=== PATIENT | female | born 1940 | race Caucasian/White ===

== ENCOUNTER 2017-11-10 20:39 | Emergency (ER) | payer OTHER ==
[~2017-11-10] VITALS: Ht 162.6 cm; Wt 76.2 kg
[~2017-11-10 20:39] MED LIST: ASPI-618 PO; ATOR40TA PO; LOSA50TA3 PO; PANT40TA2 PO
[2017-11-10] MEDS ORDERED: IV NORMAL SALINE 1000 ML BAG IV ONE (22:15)
[2017-11-10 22:21] LABS: *BILIRUBIN,URIN NEGATIVE (NEGATIVE); *BLOOD, URINE 1+ (NEGATIVE); *CLARITY,URINE CLEAR (CLEAR); *COLOR,URINE YELLOW (YELLOW); *KETONES,URINE NEGATIVE (NEGATIVE); *PROTEIN,URINE NEGATIVE (NEGATIVE); *UROBILINOGEN,URINE 0.2 E.U./dl (NORMAL); LEUKOCYTE ESTERASE ,URINE TRACE (NEGATIVE); NITRITE, URINE NEGATIVE (NEGATIVE); UGLUCOSE NEGATIVE (NEGATIVE)
[2017-11-10 22:22] LABS: BASOPHILS % (AUTO) 0.7 % (0.0-2.0); EOSINOPHILS # (AUTO) 0.2 K/uL (0.0-0.7); HEMATOCRIT 38.7 % (31.2-41.9); HEMOGLOBIN 13.3 g/dL (10.9-14.3); LYMPHOCYTES # (AUTO) 1.4 K/uL (20.0-40.0); LYMPHOCYTES % (AUTO) 27.9 % (20.5-51.5); MEAN CORPUSCULAR HGB CONC 35 g/dL (32.3-35.6); MEAN CORPUSCULAR VOLUME 90.1 fL (75.5-95.3); MONOCYTES # (AUTO) 0.5 K/uL (2.0-10.0); MONOCYTES % (AUTO) 8.7 % (0.0-11.0); NEUTROPHILS # (AUTO) 3.1 K/uL (1.8-8.9); NEUTROPHILS % (AUTO) 59.7 % (38.5-71.5); PLATELET COUNT (AUTO) 205 K/uL (179-408); WHITE BLOOD COUNT (AUTO) 5.2 K/uL (3.8-11.8)
[2017-11-10 22:29] LABS: CARBON DIOXIDE 28 mmol/L (21-32); CHLORIDE 105 mmol/L (98-107); CREATININE 0.8 mg/dL (0.6-1.3); GLUCOSE 99 mg/dL (74-106); POTASSIUM 3.7 mmol/L (3.5-5.1); UREA NITROGEN, BLOOD 17 mg/dL (7-18)
[2017-11-10 22:34] LABS: MUCUS,URINE FEW /LPF (0-FEW); SQUAMOUS EPITHELIAL CELL,UR FEW /HPF (NONE SEEN); WBC,URINE 0-3 /HPF (0-3)
[2017-11-10 22:35] LABS: ALANINE AMINOTRANSFERASE 21 U/L (14-59); ALKALINE PHOSPHATASE 89 U/L (50-136); ASPARTATE AMINOTRANSFERASE 20 U/L (15-37); BILIRUBIN,DIRECT 0.1 mg/dL (0.0-0.2); BILIRUBIN,TOTAL 0.2 mg/dL (0.2-1.0); LIPASE 107 U/L (73-393); TOTAL PROTEIN, SERUM 7.5 g/dL (6.4-8.2)
[2017-11-10 23:31] VITALS: BP 118/72
--- NOTE | 2017-11-10 23:31 | NUR ---
Patient discharged to home in stable conditon. Written and verbal after care instructions given. Patient verbalizes understanding of instructions.
== END 2017-11-10 23:32 | disposition home or self-care (01) ==
LOC: ER 20:39
DX: R10.31 Right lower quadrant pain (principal); I10 Essential (primary) hypertension; K21.9 Gastro-esophageal reflux disease without esophagitis; Z79.82 Long term (current) use of aspirin; Z90.710 Acquired absence of both cervix and uterus
CPT/HCPCS: 36415; 71045; 83690; 85025; 87086; 93005; A4663; J7030

== ENCOUNTER 2021-01-03 18:45 | Inpatient (IN) | payer MEDICARE, OTHER ==
[~2021-01-03] VITALS: Ht 165.1 cm; Wt 65.8 kg
--- NOTE | 2021-01-03 19:10 | NUR ---
Dr. Duggan at bedside for MSE.
[2021-01-03] MEDS ORDERED: HYDROMORPHONE 1 MG/1 ML DISP.SYRIN IV ONE ×2 (19:15→22:30)
[2021-01-03] MEDS ORDERED: IV NORMAL SALINE 1000 ML BAG IV ONE (19:15)
[2021-01-03] MEDS ORDERED: ONDANSETRON 4 MG/2 ML VIAL IV ONE (19:15)
[2021-01-03] MEDS ORDERED: KETOROLAC TROMETHAMINE 15 MG INJ IVP ONE (19:15)
--- NOTE | 2021-01-03 19:25 | NUR ---
Pt provided urine sample, sent to lab.
[2021-01-03] MEDS ORDERED: HYDROMORPHONE 1 MG/1 ML DISP.SYRIN ONE ×2 (19:31→22:39)
[2021-01-03] MEDS ORDERED: ONDANSETRON 4 MG/2 ML VIAL ONE (19:31)
[2021-01-03] MEDS ORDERED: KETOROLAC TROMETHAMINE 15 MG INJ ONE (19:32)
[2021-01-03 19:45] LABS: *BILIRUBIN,URIN NEGATIVE (NEGATIVE); *BLOOD, URINE 1+ (NEGATIVE); *CLARITY,URINE CLEAR (CLEAR); *COLOR,URINE YELLOW (YELLOW); *KETONES,URINE NEGATIVE (NEGATIVE); *UROBILINOGEN,URINE 0.2 E.U./dl (NORMAL); LEUKOCYTE ESTERASE ,URINE 1+ (NEGATIVE); NITRITE, URINE NEGATIVE (NEGATIVE); PH,URINE 5.5 (5.0-8.0); UGLUCOSE NEGATIVE (NEGATIVE)
[2021-01-03 19:46] LABS: BASOPHILS % (AUTO) 0.7 % (0.0-2.0); EOSINOPHILS # (AUTO) 0.1 K/uL (0.0-0.7); EOSINOPHILS % (AUTO) 1.7 % (0.0-7.0); HEMATOCRIT 40.5 % (31.2-41.9); HEMOGLOBIN 13.6 g/dL (10.9-14.3); LYMPHOCYTES # (AUTO) 0.7 K/uL (20.0-40.0); LYMPHOCYTES % (AUTO) 18.3 % (20.5-51.5); MEAN CORPUSCULAR HEMOGLOBIN 31.1 uug (24.7-32.8); MEAN CORPUSCULAR HGB CONC 34 g/dL (32.3-35.6); MEAN CORPUSCULAR VOLUME 92.3 fL (75.5-95.3); MONOCYTES # (AUTO) 0.4 K/uL (2.0-10.0); MONOCYTES % (AUTO) 11.4 % (0.0-11.0); NEUTROPHILS # (AUTO) 2.7 K/uL (1.8-8.9); NEUTROPHILS % (AUTO) 67.9 % (38.5-71.5); PLATELET COUNT (AUTO) 222 K/uL (179-408); RED BLOOD CELL COUNT(AUTO) 4.39 MIL/uL (3.63-4.92); WHITE BLOOD COUNT (AUTO) 3.9 K/uL (3.8-11.8)
[2021-01-03 19:52] LABS: BILIRUBIN,DIRECT 0.1 mg/dL (0.0-0.2); BILIRUBIN,TOTAL 0.3 mg/dL (0.2-1.0); CREATININE 0.9 mg/dL (0.6-1.3); POTASSIUM 3.7 mmol/L (3.5-5.1); TOTAL PROTEIN, SERUM 7.5 g/dL (6.4-8.2)
[2021-01-03 20:01] LABS: WBC,URINE 0-3 /HPF (0-3)
--- NOTE | 2021-01-03 20:07 | NUR ---
Pt out of ER for CT.
[2021-01-03] MEDS ORDERED: SWABABLE VALVE TRANSFER SET EA MC ONE (20:08)
[2021-01-03] MEDS ORDERED: IOHEXOL 300MG/ML 100 ML INFUS..BTL ONE (20:09)
[2021-01-03] MEDS ORDERED: IV NORMAL SALINE 250 ML IV ONE (20:09)
--- NOTE | 2021-01-03 20:38 | NUR ---
Pt back to ER from CT.
--- NOTE | 2021-01-03 20:45 | NUR ---
Xray at bedside.
[2021-01-03] MEDS ORDERED: CLOPIDOGREL 75 MG TABLET PO ONE (21:15)
[2021-01-03] MEDS ORDERED: ENOXAPARIN SODIUM 60 MG/0.6 ML DISP.SYRIN SQ ONE (21:15)
[2021-01-03] MEDS ORDERED: ASPIRIN 325 MG TABLET PO ONE (21:15)
[2021-01-03] MEDS ORDERED: LIDOCAINE 2% (UROJET) 10 ML JELLY MM ONE ×2 (21:15→21:26)
--- NOTE | 2021-01-03 21:17 | NUR ---
Called [facility] to page Anne Henderson NP.
[2021-01-03] MEDS ORDERED: ASPIRIN 325 MG TABLET ONE (21:24)
[2021-01-03] MEDS ORDERED: CLOPIDOGREL 75 MG TABLET ONE (21:25)
[2021-01-03] MEDS ORDERED: ENOXAPARIN SODIUM 100 MG/ML DISP.SYRIN SQ ONE (21:26)
[2021-01-03] MEDS ORDERED: FUROSEMIDE 40 MG/4 ML VIAL IV ONE (21:30)
[2021-01-03] MEDS ORDERED: NITROGLYCERIN 0.4 MG/TAB BOTTLE SL PRN (21:30)
[2021-01-03] MEDS ORDERED: BISACODYL 10 MG SUPP.RECT RC ONE (21:30)
[2021-01-03] MEDS ORDERED: FUROSEMIDE 40 MG/4 ML VIAL ONE (21:33)
--- NOTE | 2021-01-03 21:47 | NUR ---
Inserted NG tube 16 fr to right nare, confirmed placement with Ethan Walton RN via auscultation, called Xray for NG tube placement confirmation.
[2021-01-03] MEDS ORDERED: CEphaleXIN 250 MG CAPSULE ONE (21:49)
--- NOTE | 2021-01-03 21:49 | NUR ---
Xray at bedside.
--- NOTE | 2021-01-03 22:02 | NUR ---
NG tube placement confirmed thru X-ray.
--- NOTE | 2021-01-03 22:42 | NUR ---
Report given to [employer] Sales Professional Apartment Manager.
[2021-01-03 23:23] VITALS: BP_SYST 151; BP_DIAS 74; BP_DIAS 75
[2021-01-03] MEDS: DOCUSATE SODIUM 100 MG CAPSULE PO SCH (23:51)
[2021-01-04 00:17] VITALS: BP 145/68
[2021-01-04] MEDS: MORPHINE SULFATE 2 MG/1 ML DISP.SYRIN IV PRN ×2 (01:05→07:51)
[2021-01-04] MEDS: ACETAMINOPHEN 650 MG SUPP.RECT RC PRN ×2 (03:58→07:51)
[2021-01-04 04:43] VITALS: BP 122/68
--- NOTE | 2021-01-04 06:41 | NUR ---
PT ARRIVED ON UNIT AROUND 2300. AxO4. PT AMBULATORY AND USES COMODE. PT ON ROOM AIR W/ NO APPARENT SOB OR DYSPNEA NOTED. PT IS [place] SPEAKING W/ LITTLE TO NO CROATIAN. PRN TYLENOL AND MORPHINE GIVEN FOR PAIN. TROPONIN .176 WHILE AT ER AND .175 ON LATEST LAB DRAW AT 0330. CALL LIGHT WITHIN REACH. ALL NEEDS MET.
--- NOTE | 2021-01-04 08:00 | NUR ---
Bowel sound hypoactive but present. Pt denies any flatus being passed. NGT at low cont suction @ marking 65. Pt speaks Indonesian but able to make her needs known. Had another nurse translate to notify nursing for any c/o abd pain, nausea, and headache. Pt agreeable with plan. Kept pt NPO. Pt is for SPFT for today. Tele SNR @ 75 hr. Call light is within reach.
[2021-01-04] MEDS: CEphaleXIN 500 MG CAPSULE PO SCH ×2 (08:14→16:30)
[2021-01-04] MEDS: ASPIRIN 81 MG TAB.CHEW PO SCH (08:16)
[2021-01-04] MEDS: LOSARTAN POTASSIUM 50 MG TABLET PO SCH (08:16)
[2021-01-04] MEDS ORDERED: FUROSEMIDE 40 MG/4 ML VIAL IV SCH (09:00)
[2021-01-04] MEDS ORDERED: ENOXAPARIN SODIUM 60 MG/0.6 ML DISP.SYRIN SQ SCH (09:00)
[2021-01-04 09:16] LABS: BASOPHILS # (AUTO) 0.1 K/uL (0.0-8.0); BASOPHILS % (AUTO) 1.8 % (0.0-2.0); EOSINOPHILS % (AUTO) 0.4 % (0.0-7.0); HEMOGLOBIN 13.5 g/dL (10.9-14.3); LYMPHOCYTES # (AUTO) 0.7 K/uL (20.0-40.0); LYMPHOCYTES % (AUTO) 15.9 % (20.5-51.5); MEAN CORPUSCULAR HGB CONC 34 g/dL (32.3-35.6); MEAN CORPUSCULAR VOLUME 92.1 fL (75.5-95.3); MONOCYTES # (AUTO) 0.4 K/uL (2.0-10.0); NEUTROPHILS # (AUTO) 3.4 K/uL (1.8-8.9); NEUTROPHILS % (AUTO) 73.9 % (38.5-71.5); PLATELET COUNT (AUTO) 215 K/uL (179-408); RED BLOOD CELL COUNT(AUTO) 4.35 MIL/uL (3.63-4.92); WHITE BLOOD COUNT (AUTO) 4.6 K/uL (3.8-11.8)
[2021-01-04] MEDS: ONDANSETRON 4 MG/2 ML VIAL IV PRN ×2 (09:21→16:30)
[2021-01-04] MEDS ORDERED: DIATR MEGLU/DIATRIZOATE SODIUM 30 ML BOTTLE ONE (09:21)
[2021-01-04 09:22] LABS: BILIRUBIN,TOTAL 0.3 mg/dL (0.2-1.0); CREATININE 0.9 mg/dL (0.6-1.3); PHOSPHOROUS 4.5 mg/dL (2.5-4.9); POTASSIUM 3.5 mmol/L (3.5-5.1); TOTAL PROTEIN, SERUM 7.5 g/dL (6.4-8.2)
[2021-01-04 09:31] LABS: THYROID STIMULATING HORMONE 2.522 mIU/mL (0.358-3.740)
[2021-01-04 12:00] VITALS: BP 119/70
[2021-01-04 16:00] VITALS: BP 138/72
[2021-01-04] MEDS ORDERED: METOCLOPRAMIDE HCL 10 MG/2 ML VIAL IV SCH (18:00)
[2021-01-04] MEDS: METOCLOPRAMIDE HCL 10 MG/2 ML VIAL IV SCH ×2 (18:05→23:34)
--- NOTE | 2021-01-04 18:28 | NUR ---
Pt's ABD pain managed with morphine, nausea given x2 with zofran. Pt had x 1 vomiting episode @ around 1100 upon given the contrast for SPFT. Pt had about 400 out from the ngt to suction with brownish color. Pt comfortable at the moment. Kept pt NPO still no result from SPFT. Pt is in no acute distress. Call light is within reach.
--- NOTE | 2021-01-04 19:30 | NUR ---
RECEIVED PT AWAKE, ALERT AND ORIENTEDX4. PT IN NO ACUTE DISTRESS. IV INTACT. PT ON NGTUBE. SAFETY AND COMFORT PROVIDED. WILL CONTINUE TO MONITOR
[2021-01-04] MEDS: ATORVASTATIN 40 MG TABLET PO SCH (20:00)
[2021-01-04] MEDS: DOCUSATE SODIUM 100 MG CAPSULE PO SCH (20:00)
[2021-01-04] MEDS: ACETAMINOPHEN 325 MG TABLET PO PRN (20:00)
[2021-01-04 20:09] VITALS: BP 145/73
[2021-01-04] MEDS ORDERED: ZOLPIDEM 5 MG TABLET PO PRN (21:45)
[2021-01-05 00:03] VITALS: BP 140/70
[2021-01-05 04:09] VITALS: BP 145/67
[2021-01-05] MEDS: METOCLOPRAMIDE HCL 10 MG/2 ML VIAL IV SCH ×3 (05:51→17:03)
[2021-01-05 06:16] LABS: BASOPHILS % (AUTO) 0.7 % (0.0-2.0); EOSINOPHILS % (AUTO) 0.7 % (0.0-7.0); HEMATOCRIT 40.7 % (31.2-41.9); HEMOGLOBIN 13.7 g/dL (10.9-14.3); LYMPHOCYTES # (AUTO) 1.1 K/uL (20.0-40.0); LYMPHOCYTES % (AUTO) 21.5 % (20.5-51.5); MEAN CORPUSCULAR HEMOGLOBIN 30.9 uug (24.7-32.8); MEAN CORPUSCULAR HGB CONC 34 g/dL (32.3-35.6); MEAN CORPUSCULAR VOLUME 91.5 fL (75.5-95.3); MONOCYTES # (AUTO) 0.7 K/uL (2.0-10.0); MONOCYTES % (AUTO) 13.3 % (0.0-11.0); NEUTROPHILS # (AUTO) 3.2 K/uL (1.8-8.9); NEUTROPHILS % (AUTO) 63.8 % (38.5-71.5); PLATELET COUNT (AUTO) 214 K/uL (179-408); RED BLOOD CELL COUNT(AUTO) 4.45 MIL/uL (3.63-4.92); WHITE BLOOD COUNT (AUTO) 4.9 K/uL (3.8-11.8)
--- NOTE | 2021-01-05 06:22 | NUR ---
PT IN NO ACUTE DISTRESS. PT NGTUBE OUTPUT WAS 250 ML. PT SLEPT INTERMITTENTLY. PT VITAL SIGNS STABLE. SAFETY AND COMFORT PROVIDED.ALL NEEDS ARE MET. PT IV INTACT. WILL ENDORSE TO INCOMING NURSE FOR CONTINUITY OF CARE.
[2021-01-05 06:40] LABS: MAGNESIUM 2.2 mg/dL (1.8-2.4); PHOSPHOROUS 4.7 mg/dL (2.5-4.9); POTASSIUM 3.3 mmol/L (3.5-5.1)
[2021-01-05] MEDS: ACETAMINOPHEN 325 MG TABLET PO PRN (06:51)
[2021-01-05] MEDS: ONDANSETRON 4 MG/2 ML VIAL IV PRN (08:31)
[2021-01-05] MEDS: CEphaleXIN 500 MG CAPSULE PO SCH ×2 (08:31→17:03)
[2021-01-05] MEDS: ASPIRIN 81 MG TAB.CHEW PO SCH (08:31)
[2021-01-05] MEDS: LOSARTAN POTASSIUM 50 MG TABLET PO SCH (08:34)
[2021-01-05] MEDS: POTASSIUM CHLORIDE 50 ML IV SCH ×4 (08:34→11:20)
[2021-01-05] MEDS: ENOXAPARIN SODIUM 40 MG/0.4 ML DISP.SYRIN SQ SCH (09:00)
--- NOTE | 2021-01-05 09:06 | NUR ---
hold lovenox per dr ruelas
[2021-01-05 11:36] VITALS: BP 132/66
--- NOTE | 2021-01-05 13:45 | NUR ---
Right lung ultrasound guided Thoracentesis done and drained 550cc + syringe 60cc. Post x ray done awaiting result. No sob noted.
[2021-01-05 15:12] VITALS: BP 112/61
--- NOTE | 2021-01-05 18:49 | NUR ---
Ambulated pt around hallway x 1 with FWW with MIN A. No sob noted. Tolerated clear liquid. Total drainage on NGT today 450cc brownish color. Pt denies any abd pain. No c/o NV. Pt states that she passed gas x 1 today. NO BM noted. Call light is within reach.
[2021-01-05 20:09] VITALS: BP 118/57
[2021-01-05] MEDS: DOCUSATE SODIUM 100 MG CAPSULE PO SCH (20:32)
[2021-01-05] MEDS: ATORVASTATIN 40 MG TABLET PO SCH (20:32)
[2021-01-06 00:09] VITALS: BP 122/72
[2021-01-06] MEDS: METOCLOPRAMIDE HCL 10 MG/2 ML VIAL IV SCH ×4 (00:30→18:22)
[2021-01-06 04:12] VITALS: BP 113/56
[2021-01-06 07:15] LABS: BASOPHILS # (AUTO) 0.1 K/uL (0.0-8.0); BASOPHILS % (AUTO) 0.9 % (0.0-2.0); EOSINOPHILS # (AUTO) 0.1 K/uL (0.0-0.7); HEMATOCRIT 38.5 % (31.2-41.9); HEMOGLOBIN 12.8 g/dL (10.9-14.3); LYMPHOCYTES # (AUTO) 1.2 K/uL (20.0-40.0); LYMPHOCYTES % (AUTO) 23.1 % (20.5-51.5); MEAN CORPUSCULAR HEMOGLOBIN 30.6 uug (24.7-32.8); MEAN CORPUSCULAR HGB CONC 33 g/dL (32.3-35.6); MEAN CORPUSCULAR VOLUME 91.7 fL (75.5-95.3); MONOCYTES # (AUTO) 0.6 K/uL (2.0-10.0); MONOCYTES % (AUTO) 10.9 % (0.0-11.0); NEUTROPHILS # (AUTO) 3.4 K/uL (1.8-8.9); NEUTROPHILS % (AUTO) 63.1 % (38.5-71.5); PLATELET COUNT (AUTO) 207 K/uL (179-408); RED BLOOD CELL COUNT(AUTO) 4.19 MIL/uL (3.63-4.92); WHITE BLOOD COUNT (AUTO) 5.4 K/uL (3.8-11.8)
[2021-01-06 07:24] LABS: MAGNESIUM 2.2 mg/dL (1.8-2.4); POTASSIUM 3.4 mmol/L (3.5-5.1)
[2021-01-06] MEDS: ASPIRIN 81 MG TAB.CHEW PO SCH (09:50)
[2021-01-06] MEDS: CEphaleXIN 500 MG CAPSULE PO SCH ×2 (09:51→18:19)
[2021-01-06] MEDS: LOSARTAN POTASSIUM 50 MG TABLET PO SCH (09:51)
[2021-01-06] MEDS: ENOXAPARIN SODIUM 40 MG/0.4 ML DISP.SYRIN SQ SCH (09:52)
[2021-01-06] MEDS: MAG HYDROX/AL HYDROX/SIMETH 30 ML LIQUID UDC PO PRN ×2 (09:52→21:51)
[2021-01-06] MEDS: MORPHINE SULFATE 2 MG/1 ML DISP.SYRIN IV PRN (09:53)
[2021-01-06] MEDS ORDERED: POTASSIUM CHLORIDE 20 MEQ TAB.PRT.SR PO SCH (10:00)
[2021-01-06 11:43] VITALS: BP 100/54
--- NOTE | 2021-01-06 13:43 | NUR ---
NG tube removed as ordered, pt tolerated well.
[2021-01-06 16:00] VITALS: BP 104/51
--- NOTE | 2021-01-06 19:00 | NUR ---
RECD PT AMBULATING AROUND HER ROOM , ALERT AND ORIENNTEDX4, NEEDS ATTENDED TO ,ON TELE SINUS 83, VITAL SIGNS TAKEN AND RECORDED,
[2021-01-06 20:24] VITALS: BP 105/76
[2021-01-06] MEDS: DOCUSATE SODIUM 100 MG CAPSULE PO SCH (21:50)
[2021-01-06] MEDS: ATORVASTATIN 40 MG TABLET PO SCH (21:50)
--- NOTE | 2021-01-06 22:00 | NUR ---
DUE MEDS GIVEN, C/O STOMACH UPSET, [place]LANTA GIVEN. RESTED FAIRLY WELL.
[2021-01-07 00:16] VITALS: BP 122/50
[2021-01-07] MEDS: METOCLOPRAMIDE HCL 10 MG/2 ML VIAL IV SCH ×3 (02:26→11:54)
[2021-01-07 04:24] VITALS: BP 132/62
--- NOTE | 2021-01-07 06:17 | NUR ---
uneventful nite, no distress noted,slept fairly well.
--- NOTE | 2021-01-07 07:30 | NUR ---
received change of shift report. pt in bed resting, no complaints of pain at this time, on room air, no signs of shortness of breath, Sudanese speaking. A/O x4, amb and steady, BRP, on tele monitor NSR, IV access on the right AC saline lock. bed in low and locked position, call light within reach, safety precautions in place.
[2021-01-07] MEDS: CEphaleXIN 500 MG CAPSULE PO SCH ×2 (09:09→17:39)
[2021-01-07] MEDS: LOSARTAN POTASSIUM 50 MG TABLET PO SCH (09:09)
[2021-01-07] MEDS: ASPIRIN 81 MG TAB.CHEW PO SCH (09:09)
[2021-01-07 09:10] VITALS: BP 121/62
[2021-01-07] MEDS: ENOXAPARIN SODIUM 40 MG/0.4 ML DISP.SYRIN SQ SCH (09:10)
[2021-01-07] MEDS ORDERED: ASPI81TA31 PO (09:16)
[2021-01-07 09:49] LABS: MAGNESIUM 2.2 mg/dL (1.8-2.4); PHOSPHOROUS 3.7 mg/dL (2.5-4.9); POTASSIUM 3.9 mmol/L (3.5-5.1)
[2021-01-07 10:21] LABS: BASOPHILS % (AUTO) 0.8 % (0.0-2.0); EOSINOPHILS # (AUTO) 0.2 K/uL (0.0-0.7); EOSINOPHILS % (AUTO) 3.7 % (0.0-7.0); HEMATOCRIT 40.7 % (31.2-41.9); HEMOGLOBIN 13.8 g/dL (10.9-14.3); LYMPHOCYTES # (AUTO) 1.3 K/uL (20.0-40.0); LYMPHOCYTES % (AUTO) 28.5 % (20.5-51.5); MEAN CORPUSCULAR HEMOGLOBIN 31.1 uug (24.7-32.8); MEAN CORPUSCULAR HGB CONC 34 g/dL (32.3-35.6); MEAN CORPUSCULAR VOLUME 91.9 fL (75.5-95.3); MONOCYTES # (AUTO) 0.4 K/uL (2.0-10.0); MONOCYTES % (AUTO) 8.3 % (0.0-11.0); NEUTROPHILS # (AUTO) 2.6 K/uL (1.8-8.9); NEUTROPHILS % (AUTO) 58.7 % (38.5-71.5); PLATELET COUNT (AUTO) 211 K/uL (179-408); RED BLOOD CELL COUNT(AUTO) 4.43 MIL/uL (3.63-4.92); WHITE BLOOD COUNT (AUTO) 4.4 K/uL (3.8-11.8)
[2021-01-07 12:00] VITALS: BP 106/69
--- NOTE | 2021-01-07 17:40 | NUR ---
pt discharged home with all belongings, paperwork and prescriptions. pt ambulatory with steady gait, escorted to car via wheelchair. no complaints of pain noted, no shortness of breath, all medications given as prescribed. pt in stable condition. vitals BP 106/69, HR 81, resp rate 19, temp 97.9, O2 saturation 96% on room air. IV and ID band removed prior to discharge.
== END 2021-01-07 15:45 | disposition home or self-care (01) | DRG 388 ==
LOC: ER 18:45 → TELE3 22:47
PROVIDERS: ADMIT Registered Nurse; ATTEND Nurse Practitioner Acute Care
PROC: 0W993ZZ Drainage of Right Pleural Cavity, Percutaneous Approach (ICD-10-PCS; principal; 2021-01-05)
DX: K56.600 Partial intestinal obstruction, unspecified as to cause (principal); I21.A1 Myocardial infarction type 2; I50.33 Acute on chronic diastolic (congestive) heart failure; N39.0 Urinary tract infection, site not specified; I31.3 Pericardial effusion (noninflammatory); J91.8 Pleural effusion in other conditions classified elsewhere; I11.0 Hypertensive heart disease with heart failure; K56.7 Ileus, unspecified; K21.9 Gastro-esophageal reflux disease without esophagitis; E78.5 Hyperlipidemia, unspecified; K59.00 Constipation, unspecified; Z79.82 Long term (current) use of aspirin; Z90.710 Acquired absence of both cervix and uterus; K29.70 Gastritis, unspecified, without bleeding; R51.9 Headache, unspecified; Z86.73 Personal history of transient ischemic attack (TIA), and cerebral infarction without residual deficits; Z20.822 Contact with and (suspected) exposure to COVID-19
CPT/HCPCS: 32555; 36415; 70030-TC; 70450; 71045; 74018; 74250; 83615; 83690; 83735; 83986; 84100; 84155; 84443; 85025; 85730; 87070; 87205; 93005; 93307; A4663; G0378; J1170; J1650; J1885; J1940; J2270; J2405; J2765; J3480; J7030; J7040; J7050; Q9963; Q9967

== ENCOUNTER 2022-03-30 12:05 | Inpatient (IN) | payer MEDICARE, OTHER ==
[~2022-03-30] VITALS: Ht 165.1 cm; Wt 65.8 kg
[~2022-03-30 12:05] MED LIST changes: -ASPI-618 PO; +ASPI81TA31 PO; -PANT40TA2 PO
[2022-03-30] MEDS ORDERED: TRAM50TA2 PO (12:23)
--- NOTE | 2022-03-30 12:30 | NUR ---
Dr Danielle at the bedside for MSE, Pt's daughter assissting w/ translation.
[2022-03-30 12:56] LABS: HEMATOCRIT 40.6 % (31.2-41.9); MEAN CORPUSCULAR HEMOGLOBIN 30.6 uug (24.7-32.8); MEAN CORPUSCULAR VOLUME 90.7 fL (75.5-95.3); PLATELET COUNT (AUTO) 153 K/uL (179-408)
[2022-03-30 12:59] LABS: CARBON DIOXIDE 25 mmol/L (21-32); CHLORIDE 103 mmol/L (98-107); CREATININE 0.8 mg/dL (0.6-1.3); GLUCOSE 163 mg/dL (74-106); POTASSIUM 3.7 mmol/L (3.5-5.1); UREA NITROGEN, BLOOD 14 mg/dL (7-18)
[2022-03-30 13:12] LABS: ALANINE AMINOTRANSFERASE 17 U/L (14-59); ALKALINE PHOSPHATASE 85 U/L (50-136); ASPARTATE AMINOTRANSFERASE 18 U/L (15-37); BILIRUBIN,DIRECT 0.1 mg/dL (0.0-0.2); BILIRUBIN,TOTAL 0.5 mg/dL (0.2-1.0); TOTAL PROTEIN, SERUM 6.6 g/dL (6.4-8.2)
--- NOTE | 2022-03-30 13:29 | NUR ---
Patient is resting comfortably in bed with eyes closed, NAD noted. Continue with monitoring.
[2022-03-30] MEDS ORDERED: CEFTRIAXONE 1 G in IV DEXTROSE 5% 50 ML IV ONE (14:00)
[2022-03-30] MEDS ORDERED: TRAMADOL HCL 50 MG TABLET PO ONE (14:00)
[2022-03-30] MEDS ORDERED: CEFTRIAXONE /D5W 50ML IVPB **ER PYXIS IV ONE (14:34)
[2022-03-30] MEDS ORDERED: TRAMADOL HCL 50 MG TABLET ONE (14:34)
[2022-03-30] MEDS ORDERED: PROCHLORPERAZINE EDISYLATE 10 MG/2 ML VIAL IM ONE (14:45)
[2022-03-30] MEDS ORDERED: diphenhydrAMINE 50 MG/1 ML VIAL IV ONE (14:45)
[2022-03-30] MEDS ORDERED: diphenhydrAMINE 50 MG/1 ML VIAL ONE (14:52)
[2022-03-30] MEDS ORDERED: PROCHLORPERAZINE EDISYLATE 10 MG/2 ML VIAL ONE (14:52)
--- NOTE | 2022-03-30 16:20 | NUR ---
Pt. admitted to TELE room # 321, under care of Davon Benedict NP Dx: Pneumonia . Troponin was 2.25 at ER Belongs List completed. Pt admitted in stable condition, continue with C/O of pain/discomfort of a headache. No n/v/d.or dizziness.
--- NOTE | 2022-03-30 16:22 | NUR ---
Pt transfered to Tele bed room 321, via [facility].
[2022-03-30 17:00] VITALS: BP 140/76
[2022-03-30] MEDS ORDERED: ACETAMINOPHEN 325 MG TABLET PO PRN (17:00)
[2022-03-30] MEDS ORDERED: REMEDY ESSENTIAL ZINC PASTE 113 GM TP PRN (17:00)
[2022-03-30] MEDS ORDERED: MAGNESIUM HYDROXIDE 30 ML LIQUID UDC PO PRN (17:00)
[2022-03-30] MEDS: ENOXAPARIN SODIUM 40 MG/0.4 ML DISP.SYRIN SQ SCH (17:41)
--- NOTE | 2022-03-30 18:00 | NUR ---
Receive a critical report fro the lab Pt Troponin = 2.62 notified Davon Benedict with NNO noted at this time
[2022-03-30] MEDS: TRAMADOL HCL 50 MG TABLET PO PRN (18:55)
--- NOTE | 2022-03-30 19:40 | NUR ---
Patient alert oriented, speak mongolian, daughter at bedside to interpret for the patient, no fruther complain of headaches at this time, tele monitor sinus rhthm at this time, assisted with toileting, cont to monitor.
[2022-03-30 20:00] VITALS: BP 148/65
[2022-03-30] MEDS: ATORVASTATIN 40 MG TABLET PO SCH (20:48)
[2022-03-30] MEDS: DOXYCYCLINE HYCLATE 100 MG TABLET PO SCH (20:48)
[2022-03-31] VITALS: BP 138/66
[2022-03-31 04:00] VITALS: BP 134/80
--- NOTE | 2022-03-31 04:31 | NUR ---
Patient slept most of the night, no sob no chest pain, no further complain of headaches at this time, assisted with toileting, cont to monitor.
[2022-03-31] MEDS: TRAMADOL HCL 50 MG TABLET PO PRN ×2 (05:04→16:22)
[2022-03-31 06:33] LABS: HEMATOCRIT 40.9 % (31.2-41.9); MEAN CORPUSCULAR HEMOGLOBIN 30.4 uug (24.7-32.8); MEAN CORPUSCULAR VOLUME 89.5 fL (75.5-95.3); PLATELET COUNT (AUTO) 149 K/uL (179-408)
[2022-03-31 07:09] LABS: CREATININE 0.8 mg/dL (0.6-1.3); MAGNESIUM 2.2 mg/dL (1.8-2.4); PHOSPHOROUS 3.7 mg/dL (2.5-4.9)
[2022-03-31] MEDS: PANTOPRAZOLE SODIUM 40 MG TABLET.DR PO SCH (07:34)
--- NOTE | 2022-03-31 07:34 | NUR ---
troponin 249 trending down, Davon Mcdonald notify, endorse to next shift.
[2022-03-31] MEDS: DOXYCYCLINE HYCLATE 100 MG TABLET PO SCH ×2 (08:47→20:46)
[2022-03-31] MEDS: ASPIRIN 81 MG TAB.CHEW PO SCH (08:47)
[2022-03-31] MEDS: ENOXAPARIN SODIUM 40 MG/0.4 ML DISP.SYRIN SQ SCH (08:50)
[2022-03-31] MEDS: LOSARTAN POTASSIUM 50 MG TABLET PO SCH (08:53)
[2022-03-31] MEDS ORDERED: IOHEXOL 350 100 ML INFUS..BTL ONE (11:13)
[2022-03-31] MEDS ORDERED: SWABABLE VALVE TRANSFER SET EA MC ONE (11:13)
[2022-03-31] MEDS ORDERED: IV NORMAL SALINE 250 ML IV ONE (11:15)
[2022-03-31 11:41] VITALS: BP 113/54
--- NOTE | 2022-03-31 12:52 | NUR ---
Patient was picked up for CT scan via wheel chair. patient stated had no pain, no distress was noted. patient signed consent with contrast herself for the procedure CT of chest (angio)
[2022-03-31] MEDS ORDERED: IV NORMAL SALINE 500 ML IV ONE (13:15)
[2022-03-31] MEDS: CEFTRIAXONE 1 G in IV DEXTROSE 5% 50 ML IV SCH (14:42)
[2022-03-31 15:30] VITALS: BP 112/71
[2022-03-31] MEDS: ONDANSETRON 4 MG/2 ML VIAL IV PRN (18:30)
[2022-03-31 20:00] VITALS: BP 136/80
[2022-03-31] MEDS: ATORVASTATIN 40 MG TABLET PO SCH (20:46)
[2022-04-01] VITALS: BP 125/78
[2022-04-01] MEDS: ONDANSETRON 4 MG/2 ML VIAL IV PRN (02:01)
[2022-04-01] MEDS: TRAMADOL HCL 50 MG TABLET PO PRN ×2 (02:01→20:21)
[2022-04-01 04:00] VITALS: BP 128/76
[2022-04-01] MEDS: PANTOPRAZOLE SODIUM 40 MG TABLET.DR PO SCH (06:06)
[2022-04-01 06:29] LABS: MEAN CORPUSCULAR HEMOGLOBIN 30.8 uug (24.7-32.8); MEAN CORPUSCULAR VOLUME 89.5 fL (75.5-95.3); PLATELET COUNT (AUTO) 163 K/uL (179-408)
[2022-04-01 06:35] LABS: CREATININE 0.8 mg/dL (0.6-1.3); PHOSPHOROUS 3.6 mg/dL (2.5-4.9); POTASSIUM 3.9 mmol/L (3.5-5.1)
--- NOTE | 2022-04-01 08:30 | NUR ---
Patient AAO x4 with clear to slurred speech. Patient noted to be heavily breathing, states she is not SOB, denies any chest pain. complains of headache with neck pain, 8/10. Neuro check is unremarkable. Per patient, she has had this pain for about a year, she has taken exedrin in the past but it does not help much. Patient verbalizes previous medications given in last shift not effective, Tramadol and tylenol. Davon Mcdonald, ERIKO made aware with new orders for one time benadryl and reglan dose. Call light within reach.
[2022-04-01] MEDS ORDERED: METOCLOPRAMIDE HCL 10 MG/2 ML VIAL IV ONE (09:00)
[2022-04-01] MEDS ORDERED: diphenhydrAMINE 50 MG/1 ML VIAL IV ONE (09:00)
[2022-04-01] MEDS: ENOXAPARIN SODIUM 40 MG/0.4 ML DISP.SYRIN SQ SCH (09:20)
[2022-04-01] MEDS: ASPIRIN 81 MG TAB.CHEW PO SCH (09:27)
[2022-04-01] MEDS: DOXYCYCLINE HYCLATE 100 MG TABLET PO SCH ×2 (09:27→21:29)
[2022-04-01] MEDS: LOSARTAN POTASSIUM 50 MG TABLET PO SCH (09:28)
[2022-04-01 11:27] VITALS: BP 120/62
[2022-04-01] MEDS ORDERED: DEXAMETHASONE SOD PHOSPHATE 10 MG INJ IV ONE (13:45)
[2022-04-01] MEDS: CEFTRIAXONE 1 G in IV DEXTROSE 5% 50 ML IV SCH (14:07)
[2022-04-01 15:07] VITALS: BP 101/58
[2022-04-01 20:00] VITALS: BP 102/56
[2022-04-01] MEDS: ATORVASTATIN 40 MG TABLET PO SCH (21:28)
[2022-04-02] VITALS: BP 123/75
[2022-04-02 04:00] VITALS: BP 136/71
[2022-04-02] MEDS: PANTOPRAZOLE SODIUM 40 MG TABLET.DR PO SCH (06:06)
[2022-04-02 06:35] LABS: HEMATOCRIT 41.5 % (31.2-41.9); PLATELET COUNT (AUTO) 175 K/uL (179-408)
[2022-04-02 06:47] LABS: CREATININE 0.8 mg/dL (0.6-1.3); MAGNESIUM 2.5 mg/dL (1.8-2.4); PHOSPHOROUS 3.5 mg/dL (2.5-4.9); POTASSIUM 4.2 mmol/L (3.5-5.1)
--- NOTE | 2022-04-02 07:15 | NUR ---
RECEIVED PATIENT IN BED ASLEEP EASILY AROUSABLE ON ROUNDS BUT SHE PROMPTLY FELL ASLEEP ON O2 AT 2L/M BY NASAL CANULA WITH NO SOB TELE IS SR CALL LIGHTS AND PERSONAL BELONGINGS ARE WITHIN EASY REACH MADE COMFORTABLE WILL CONTINUE TO OBSERVE.
[2022-04-02] MEDS: DOXYCYCLINE HYCLATE 100 MG TABLET PO SCH ×2 (08:26→21:22)
[2022-04-02] MEDS: ASPIRIN 81 MG TAB.CHEW PO SCH (08:26)
[2022-04-02] MEDS: LOSARTAN POTASSIUM 50 MG TABLET PO SCH (08:27)
[2022-04-02] MEDS: ENOXAPARIN SODIUM 40 MG/0.4 ML DISP.SYRIN SQ SCH (08:33)
[2022-04-02 11:29] VITALS: BP 110/45
--- NOTE | 2022-04-02 13:03 | NUR ---
DR BILL LIAO HERE SEEN PATIENT WITH NEW ORDERS AND NOTED.
[2022-04-02] MEDS: CEFTRIAXONE 1 G in IV DEXTROSE 5% 50 ML IV SCH (13:45)
[2022-04-02 15:24] VITALS: BP 115/55
--- NOTE | 2022-04-02 18:00 | NUR ---
COOPERATIVE OUT OF ROOM AMBULATORY WITH STEADY GAIT DENIES DISCOMFORTS NO SOB REMAIN ON ATB ORDERED WITH NO ADVERSE OR ALLERGIC REACTIONS AT THIS TIME.
[2022-04-02 20:42] VITALS: BP 136/70
[2022-04-02] MEDS: ATORVASTATIN 40 MG TABLET PO SCH (21:22)
[2022-04-03 00:15] VITALS: BP 140/83
[2022-04-03 04:25] VITALS: BP 155/81
[2022-04-03] MEDS: PANTOPRAZOLE SODIUM 40 MG TABLET.DR PO SCH (06:03)
[2022-04-03 06:35] LABS: HEMATOCRIT 38.9 % (31.2-41.9); MEAN CORPUSCULAR HEMOGLOBIN 30.5 uug (24.7-32.8); MEAN CORPUSCULAR VOLUME 88.4 fL (75.5-95.3); PLATELET COUNT (AUTO) 176 K/uL (179-408)
[2022-04-03 07:13] LABS: CREATININE 0.8 mg/dL (0.6-1.3); MAGNESIUM 2.3 mg/dL (1.8-2.4); POTASSIUM 3.9 mmol/L (3.5-5.1)
--- NOTE | 2022-04-03 07:25 | NUR ---
RECEIVED IN BED AWAKE ALERT AND ORIENTED DENIES PAIN OR DISCOMFORTS AT THIS TIME SKIN IS WARM AND DRY CALL LIGHTS AND PERSONAL BELONGINGS ARE WITHIN EASY REACH WILL CONTINUE TO OBSERVE.
[2022-04-03] MEDS: ASPIRIN 81 MG TAB.CHEW PO SCH (08:35)
[2022-04-03] MEDS: DOXYCYCLINE HYCLATE 100 MG TABLET PO SCH (08:35)
[2022-04-03] MEDS: TRAMADOL HCL 50 MG TABLET PO PRN (08:36)
[2022-04-03] MEDS: LOSARTAN POTASSIUM 50 MG TABLET PO SCH (08:36)
[2022-04-03] MEDS: ENOXAPARIN SODIUM 40 MG/0.4 ML DISP.SYRIN SQ SCH (09:17)
[2022-04-03 09:48] VITALS: BP 129/82
[2022-04-03] MEDS ORDERED: AMOX-430 PO (11:56)
[2022-04-03] MEDS ORDERED: DOXY100C5 PO (11:56)
--- NOTE | 2022-04-03 13:00 | NUR ---
PATIENT SEEN AND EXAMINED BY DR BILL LIAO WITH ORDER TO DISCHARGE PATIENT HOME TODAY PATIENT AWARE AND STATED THAT HER DAUGHTER JACOBY WILL BE ABLE TO TAKE HER HOME THIS AFTERNOON
[2022-04-03] MEDS: CEFTRIAXONE 1 G in IV DEXTROSE 5% 50 ML IV SCH (13:23)
--- NOTE | 2022-04-03 14:00 | NUR ---
SPOKE TIANA GARCIA MANAGER UNDERWRITING STATED WILL ORDER [facility] TO FOLLOW PATIENT AT HOME
[2022-04-03 14:07] VITALS: BP 129/75
[2022-04-03] MEDS ORDERED: ONDA4TAB11 PO (14:10)
--- NOTE | 2022-04-03 15:00 | NUR ---
PATIENT DISCHARGED PICKED UP BY HER DAUGHTER JACOBY IN SATISFACTORY CONDITION WITH DISCHARGE INSTRUCTIONS AND ALL HER PERSONAL BELONGINGS DAUGHTER TO ADMINISTRATIVE JUDGE NEW MEDICATIONS THAT WAS SENT ELECTRONICALLY AND TO FOLLOW UP WITH HER PRIMARY DOCTOR WITHIN THE NEXT ONE TO TWO WEEKS AND SHE EXPRESSED UNDERSTANDING.
== END 2022-04-03 15:05 | disposition home health service (06) | DRG 193 ==
LOC: ER 12:05 → TELE3 16:05
PROVIDERS: ADMIT Nurse Practitioner Family; ATTEND Nurse Practitioner Family
PROC: 05H633Z Insertion of Infusion Device into Left Subclavian Vein, Percutaneous Approach (ICD-10-PCS; principal; 2022-03-31)
PROC: B547ZZA Ultrasonography of Left Subclavian Vein, Guidance (ICD-10-PCS; 2022-03-31)
DX: J15.9 Unspecified bacterial pneumonia (principal); I21.A1 Myocardial infarction type 2; E44.1 Mild protein-calorie malnutrition; E88.09 Other disorders of plasma-protein metabolism, not elsewhere classified; G43.919 Migraine, unspecified, intractable, without status migrainosus; I10 Essential (primary) hypertension; I25.10 Atherosclerotic heart disease of native coronary artery without angina pectoris; E78.5 Hyperlipidemia, unspecified; Z90.710 Acquired absence of both cervix and uterus; Z68.24 Body mass index [BMI] 24.0-24.9, adult; Z20.822 Contact with and (suspected) exposure to COVID-19
CPT/HCPCS: 36415; 71045; 71275; 83735; 84100; 84484; 85025; 85730; 87040; 93005; 93307; A4663; G0378; J0696; J0780; J1100; J1200; J1650; J2405; J2765; J7040; Q9967

== ENCOUNTER 2023-01-12 11:00 | Emergency (ER) | payer MEDICARE, OTHER ==
[~2023-01-12] VITALS: Ht 165.1 cm; Wt 65.8 kg
[~2023-01-12 11:00] MED LIST changes: +AMOX-430 PO; +DOXY100C5 PO; +ONDA4TAB11 PO; +TRAM50TA2 PO
[2023-01-12 11:53] LABS: MEAN CORPUSCULAR HEMOGLOBIN 30.3 uug (24.7-32.8); MEAN CORPUSCULAR VOLUME 90.9 fL (75.5-95.3); PLATELET COUNT (AUTO) 182 K/uL (179-408)
[2023-01-12 12:02] LABS: CARBON DIOXIDE 28 mmol/L (21-32); CHLORIDE 100 mmol/L (98-107); CREATININE 0.8 mg/dL (0.6-1.3); GLUCOSE 109 mg/dL (74-106); POTASSIUM 3.6 mmol/L (3.5-5.1); UREA NITROGEN, BLOOD 15 mg/dL (7-18)
[2023-01-12 12:15] LABS: ALANINE AMINOTRANSFERASE 11 U/L (14-59); ALKALINE PHOSPHATASE 55 U/L (50-136); ASPARTATE AMINOTRANSFERASE 15 U/L (15-37); BILIRUBIN,DIRECT 0.1 mg/dL (0.0-0.2); BILIRUBIN,TOTAL 0.5 mg/dL (0.2-1.0); TOTAL PROTEIN, SERUM 6.9 g/dL (6.4-8.2)
--- NOTE | 2023-01-12 12:22 | NUR ---
Notified MD of troponin level of 162.
--- NOTE | 2023-01-12 13:11 | NUR ---
Patient does not wish to proceed with medical care recommended by Dr. Wiseman. Patient given information related to possible complications, up to and including , which could occur as a result of leaving the hospital at this time. Patient verbalizes understanding of risks involved due to leaving against medical advice. IV removed. Patient has signed AMA form.
[2023-01-12 13:12] VITALS: BP 121/65
== END 2023-01-12 13:22 | disposition left against medical advice (07) ==
LOC: ER 11:00
DX: R77.8 Other specified abnormalities of plasma proteins (principal); R06.09 Other forms of dyspnea; G43.909 Migraine, unspecified, not intractable, without status migrainosus; I25.10 Atherosclerotic heart disease of native coronary artery without angina pectoris; K21.9 Gastro-esophageal reflux disease without esophagitis; I10 Essential (primary) hypertension; Z90.710 Acquired absence of both cervix and uterus; Z79.82 Long term (current) use of aspirin; Z79.2 Long term (current) use of antibiotics; Z79.899 Other long term (current) drug therapy; Z20.822 Contact with and (suspected) exposure to COVID-19
CPT/HCPCS: 36415; 71045; 71250; 84484; 85025; 93005; A4663

== ENCOUNTER 2023-03-03 19:53 | Emergency (ER) | payer OTHER ==
[~2023-03-03] VITALS: Ht 165.1 cm; Wt 65.8 kg
[2023-03-03] MEDS ORDERED: diphenhydrAMINE 50 MG/1 ML VIAL IV ONE (22:00)
[2023-03-03] MEDS ORDERED: IV NS 1000 ML 1,000 ML IV ONE (22:00)
[2023-03-03] MEDS ORDERED: METOCLOPRAMIDE HCL 10 MG/2 ML VIAL IV ONE (22:00)
[2023-03-03] MEDS ORDERED: KETOROLAC TROMETHAMINE 30 MG INJ IVP ONE (22:00)
[2023-03-03 22:18] LABS: HEMATOCRIT 39.8 % (31.2-41.9); MEAN CORPUSCULAR HEMOGLOBIN 30.8 uug (24.7-32.8); MEAN CORPUSCULAR VOLUME 91.2 fL (75.5-95.3); PLATELET COUNT (AUTO) 193 K/uL (179-408)
[2023-03-03] MEDS ORDERED: diphenhydrAMINE 25 MG/10 ML UDC ONE (22:39)
[2023-03-03 22:40] LABS: CREATININE 0.7 mg/dL (0.6-1.3); POTASSIUM 3.7 mmol/L (3.5-5.1)
[2023-03-03] MEDS ORDERED: KETOROLAC TROMETHAMINE 30 MG INJ ONE (22:40)
[2023-03-03] MEDS ORDERED: METOCLOPRAMIDE HCL 10 MG/2 ML VIAL ONE (22:40)
[2023-03-03] MEDS ORDERED: diphenhydrAMINE 50 MG/1 ML VIAL ONE (22:41)
--- NOTE | 2023-03-03 22:59 | NUR ---
Patient resting comfortably in bed, no signs of distress noted.
[2023-03-04] MEDS ORDERED: NAPR-1009 PO (00:01)
[2023-03-04] MEDS ORDERED: METO-295 PO (00:01)
[2023-03-04] MEDS ORDERED: DIPH25CA83 PO (00:01)
--- NOTE | 2023-03-04 00:38 | NUR ---
Patient discharged to home in stable condition. Written and verbal after care instructions given to patient and daughter. Patient verbalizes understanding of instructions. Stressed follow up or return to ER for worsening s/s.
[2023-03-04 00:39] VITALS: BP 135/75
== END 2023-03-04 00:39 | disposition home or self-care (01) ==
LOC: ER 19:53
DX: G43.909 Migraine, unspecified, not intractable, without status migrainosus (principal); I25.10 Atherosclerotic heart disease of native coronary artery without angina pectoris; K21.9 Gastro-esophageal reflux disease without esophagitis; I10 Essential (primary) hypertension; Z90.710 Acquired absence of both cervix and uterus; Z79.899 Other long term (current) drug therapy; Z79.82 Long term (current) use of aspirin
CPT/HCPCS: 99284; 96374; 96375; 96361; 80048; 83880; 83735; 85025; 36415; J1200; J1885; J2765; J7040; A4663; Q0163

== ENCOUNTER 2023-08-28 11:53 | Inpatient (IN) | payer MEDICAID, MEDICARE, OTHER ==
[~2023-08-28] VITALS: Ht 162.6 cm; Wt 65.5 kg
[~2023-08-28 11:53] MED LIST changes: +DIPH25CA83 PO; +METO-295 PO; +NAPR-1009 PO
[2023-08-28 12:30] LABS: BASOPHILS % (AUTO) 0.6 % (0.0-2.0); EOSINOPHILS # (AUTO) 0.1 K/uL (0.0-0.7); EOSINOPHILS % (AUTO) 1.5 % (0.0-7.0); HEMATOCRIT 43.1 % (31.2-41.9); HEMOGLOBIN 14.5 g/dL (10.9-14.3); LYMPHOCYTES # (AUTO) 0.6 K/uL (0.8-4.8); LYMPHOCYTES % (AUTO) 12.8 % (20.5-51.5); MEAN CORPUSCULAR HEMOGLOBIN 30.8 uug (24.7-32.8); MEAN CORPUSCULAR HGB CONC 34 g/dL (32.3-35.6); MEAN CORPUSCULAR VOLUME 91.5 fL (75.5-95.3); MONOCYTES # (AUTO) 0.4 K/uL (0.1-1.30); MONOCYTES % (AUTO) 8.9 % (0.0-11.0); NEUTROPHILS # (AUTO) 3.8 K/uL (1.8-8.9); NEUTROPHILS % (AUTO) 76.2 % (38.5-71.5); PLATELET COUNT (AUTO) 175 K/uL (179-408); RED BLOOD CELL COUNT(AUTO) 4.71 MIL/uL (3.63-4.92); RED CELL DISTRIBUTION WIDTH 13.9 % (12.3-17.7)
[2023-08-28 12:47] LABS: CALCIUM 8.9 mg/dL (8.5-10.1); CARBON DIOXIDE 28 mmol/L (21-32); CHLORIDE 104 mmol/L (98-107); CREATININE 0.8 mg/dL (0.6-1.3); DIFFERENTIAL COMMENT 1; GLUCOSE 96 mg/dL (74-106); POTASSIUM 3.9 mmol/L (3.5-5.1); SODIUM SERUM 140 mmol/L (136-145); UREA NITROGEN, BLOOD 13 mg/dL (7-18)
[2023-08-28 13:00] LABS: ALANINE AMINOTRANSFERASE 19 U/L (14-59); ALBUMIN 3.3 g/dL (3.4-5.0); ALKALINE PHOSPHATASE 78 U/L (50-136); ASPARTATE AMINOTRANSFERASE 21 U/L (15-37); BILIRUBIN,DIRECT 0.1 mg/dL (0.0-0.2); BILIRUBIN,TOTAL 0.4 mg/dL (0.2-1.0); NT-PRO BNP 168 pg/mL (0-125); TOTAL PROTEIN, SERUM 6.8 g/dL (6.4-8.2)
[2023-08-28] MEDS ORDERED: CEFTRIAXONE /D5W 50ML IVPB **ER PYXIS IV ONE (14:15)
[2023-08-28] MEDS ORDERED: CEFTRIAXONE 1 G in IV DEXTROSE 5% 50 ML IV ONE (14:15)
[2023-08-28] MEDS ORDERED: ASPIRIN 325 MG TABLET PO ONE (14:30)
[2023-08-28] MEDS ORDERED: ASPIRIN 325 MG TABLET ONE (15:04)
[2023-08-28] MEDS ORDERED: MECLIZINE HCL 25 MG TABLET PO ONE (15:15)
[2023-08-28] MEDS ORDERED: MECLIZINE HCL 25 MG TABLET ONE (15:16)
[2023-08-28] MEDS ORDERED: IV NORMAL SALINE 250 ML IV ONE (17:15)
[2023-08-28] MEDS ORDERED: IOHEXOL 350 100 ML INFUS..BTL ONE (17:15)
[2023-08-28] MEDS ORDERED: SWABABLE VALVE TRANSFER SET EA MC ONE (17:15)
[2023-08-28 20:50] VITALS: BP 156/77; TEMP 98.2; O2SAT 93
[2023-08-28] MEDS ORDERED: MAGNESIUM HYDROXIDE 30 ML LIQUID UDC PO PRN (21:45)
[2023-08-28] MEDS ORDERED: ONDANSETRON 4 MG/2 ML VIAL IV PRN (21:45)
[2023-08-28] MEDS ORDERED: MORPHINE SULFATE 2 MG/1 ML DISP.SYRIN IV PRN (21:45)
[2023-08-28] MEDS: ENOXAPARIN SODIUM 40 MG/0.4 ML DISP.SYRIN SQ SCH (22:06)
[2023-08-28] MEDS ORDERED: AZITHROMYCIN 500MG/ D5W 250ML IVPB **ER PYXIS ONLY IV ONE (22:38)
[2023-08-28] MEDS: AZITHROMYCIN IV 500 MG in IV DEXTROSE 5% 250 ML IV SCH (22:47)
[2023-08-29] VITALS: BP 114/66; TEMP 98.2; O2SAT 93
[2023-08-29 04:00] VITALS: BP 136/78; TEMP 97.6; O2SAT 99
[2023-08-29] MEDS: ACETAMINOPHEN 325 MG TABLET PO PRN ×2 (05:42→11:20)
[2023-08-29] MEDS: PANTOPRAZOLE SODIUM 40 MG TABLET.DR PO SCH (06:06)
[2023-08-29 06:59] LABS: BASOPHILS % (AUTO) 0.8 % (0.0-2.0); EOSINOPHILS # (AUTO) 0.1 K/uL (0.0-0.7); EOSINOPHILS % (AUTO) 2.4 % (0.0-7.0); HEMATOCRIT 41.7 % (31.2-41.9); HEMOGLOBIN 14.3 g/dL (10.9-14.3); LYMPHOCYTES # (AUTO) 0.7 K/uL (0.8-4.8); LYMPHOCYTES % (AUTO) 18.5 % (20.5-51.5); MEAN CORPUSCULAR HEMOGLOBIN 31.4 uug (24.7-32.8); MEAN CORPUSCULAR HGB CONC 34 g/dL (32.3-35.6); MEAN CORPUSCULAR VOLUME 91.6 fL (75.5-95.3); MONOCYTES # (AUTO) 0.4 K/uL (0.1-1.30); MONOCYTES % (AUTO) 9.8 % (0.0-11.0); NEUTROPHILS # (AUTO) 2.7 K/uL (1.8-8.9); NEUTROPHILS % (AUTO) 68.5 % (38.5-71.5); PLATELET COUNT (AUTO) 137 K/uL (179-408); RED BLOOD CELL COUNT(AUTO) 4.55 MIL/uL (3.63-4.92); RED CELL DISTRIBUTION WIDTH 13.7 % (12.3-17.7)
[2023-08-29 07:10] LABS: DIFFERENTIAL COMMENT 1
[2023-08-29 07:17] LABS: ALANINE AMINOTRANSFERASE 14 U/L (14-59); ALBUMIN 2.9 g/dL (3.4-5.0); ALKALINE PHOSPHATASE 71 U/L (50-136); ASPARTATE AMINOTRANSFERASE 14 U/L (15-37); BILIRUBIN,TOTAL 0.5 mg/dL (0.2-1.0); CALCIUM 8.4 mg/dL (8.5-10.1); CARBON DIOXIDE 29 mmol/L (21-32); CHLORIDE 107 mmol/L (98-107); CHOLESTEROL 210 mg/dL (<200); CREATININE 0.9 mg/dL (0.6-1.3); GLUCOSE 96 mg/dL (74-106); HDL CHOLESTEROL 53 mg/dL (40-60); MAGNESIUM 2.1 mg/dL (1.8-2.4); POTASSIUM 3.7 mmol/L (3.5-5.1); SODIUM SERUM 143 mmol/L (136-145); TOTAL PROTEIN, SERUM 6.2 g/dL (6.4-8.2); TRIGLYCERIDES 77 MG/DL (30-150); UREA NITROGEN, BLOOD 16 mg/dL (7-18)
[2023-08-29 07:22] LABS: THYROID STIMULATING HORMONE 2.832 mIU/mL (0.358-3.740)
[2023-08-29] MEDS: ASPIRIN 81 MG TAB.CHEW PO SCH (08:47)
[2023-08-29] MEDS: LOSARTAN POTASSIUM 50 MG TABLET PO SCH (08:47)
[2023-08-29 09:00] VITALS: BP_SYST 129; BP_SYST 137; BP_DIAS 62; BP_DIAS 69; BP_DIAS 79
[2023-08-29 11:21] VITALS: BP 115/62; TEMP 98.4; O2SAT 96
[2023-08-29] MEDS ORDERED: MAGN400O6 PO (11:45)
[2023-08-29] MEDS ORDERED: ASPI-1165 PO (11:45)
[2023-08-29] MEDS: MECLIZINE HCL 25 MG TABLET PO PRN ×2 (13:05→21:03)
[2023-08-29] MEDS: CEFTRIAXONE 1 G in IV DEXTROSE 5% 50 ML IV SCH (13:06)
[2023-08-29] MEDS ORDERED: CEFTRIAXONE 1 G in IV DEXTROSE 5% 50 ML IV SCH (14:15)
[2023-08-29 15:05] VITALS: BP 122/63; TEMP 98.2; O2SAT 93
[2023-08-29] MEDS ORDERED: SWABABLE VALVE TRANSFER SET EA MC ONE (17:09)
[2023-08-29] MEDS ORDERED: IOHEXOL 350 100 ML INFUS..BTL ONE (17:09)
[2023-08-29] MEDS ORDERED: IV NORMAL SALINE 250 ML IV ONE (17:09)
[2023-08-29 20:00] VITALS: BP 151/84; TEMP 97.2; O2SAT 93
[2023-08-29] MEDS: DOCUSATE SODIUM 100 MG CAPSULE PO SCH (20:03)
[2023-08-29] MEDS: ATORVASTATIN 40 MG TABLET PO SCH (20:03)
[2023-08-29] MEDS: ENOXAPARIN SODIUM 40 MG/0.4 ML DISP.SYRIN SQ SCH (20:04)
[2023-08-29] MEDS: AZITHROMYCIN IV 500 MG in IV DEXTROSE 5% 250 ML IV SCH (21:02)
[2023-08-30] VITALS: BP 115/65; TEMP 98; O2SAT 93
[2023-08-30] MEDS: ACETAMINOPHEN 325 MG TABLET PO PRN ×2 (00:18→18:28)
[2023-08-30 04:00] VITALS: BP 132/76; TEMP 98; O2SAT 94
[2023-08-30] MEDS: PANTOPRAZOLE SODIUM 40 MG TABLET.DR PO SCH (06:03)
[2023-08-30 07:16] LABS: EOSINOPHILS # (AUTO) 0.1 K/uL (0.0-0.7); EOSINOPHILS % (AUTO) 3.4 % (0.0-7.0); HEMATOCRIT 39.3 % (31.2-41.9); HEMOGLOBIN 13.3 g/dL (10.9-14.3); LYMPHOCYTES % (AUTO) 26.2 % (20.5-51.5); MEAN CORPUSCULAR HEMOGLOBIN 31.2 uug (24.7-32.8); MEAN CORPUSCULAR HGB CONC 34 g/dL (32.3-35.6); MEAN CORPUSCULAR VOLUME 92.4 fL (75.5-95.3); MONOCYTES # (AUTO) 0.4 K/uL (0.1-1.30); MONOCYTES % (AUTO) 10.7 % (0.0-11.0); NEUTROPHILS # (AUTO) 2.2 K/uL (1.8-8.9); NEUTROPHILS % (AUTO) 58.7 % (38.5-71.5); PLATELET COUNT (AUTO) 158 K/uL (179-408); RED BLOOD CELL COUNT(AUTO) 4.25 MIL/uL (3.63-4.92); RED CELL DISTRIBUTION WIDTH 14.1 % (12.3-17.7); WHITE BLOOD COUNT (AUTO) 3.8 K/uL (3.8-11.8)
[2023-08-30 07:22] LABS: DIFFERENTIAL COMMENT 1
[2023-08-30 07:50] LABS: CALCIUM 8.5 mg/dL (8.5-10.1); CARBON DIOXIDE 27 mmol/L (21-32); CHLORIDE 105 mmol/L (98-107); CREATININE 0.9 mg/dL (0.6-1.3); GLUCOSE 92 mg/dL (74-106); PHOSPHOROUS 3.9 mg/dL (2.5-4.9); POTASSIUM 3.9 mmol/L (3.5-5.1); SODIUM SERUM 140 mmol/L (136-145); UREA NITROGEN, BLOOD 16 mg/dL (7-18)
[2023-08-30] MEDS: LOSARTAN POTASSIUM 50 MG TABLET PO SCH (09:10)
[2023-08-30] MEDS: ASPIRIN 81 MG TAB.CHEW PO SCH (09:10)
[2023-08-30 11:34] VITALS: BP 131/82; TEMP 98.4; O2SAT 95
[2023-08-30] MEDS: CEFTRIAXONE 1 G in IV DEXTROSE 5% 50 ML IV SCH (14:08)
[2023-08-30 15:39] VITALS: BP 121/68; TEMP 97.7; O2SAT 94
[2023-08-30 19:59] VITALS: BP 121/78; TEMP 98; O2SAT 96
[2023-08-30] MEDS: DOCUSATE SODIUM 100 MG CAPSULE PO SCH (20:24)
[2023-08-30] MEDS: ATORVASTATIN 40 MG TABLET PO SCH (20:24)
[2023-08-30] MEDS: ENOXAPARIN SODIUM 40 MG/0.4 ML DISP.SYRIN SQ SCH (20:25)
[2023-08-30] MEDS: AZITHROMYCIN 250 MG TABLET PO SCH ×2 (21:44→23:12)
[2023-08-31 04:00] VITALS: BP 147/73; TEMP 97.9; O2SAT 94
[2023-08-31] MEDS: PANTOPRAZOLE SODIUM 40 MG TABLET.DR PO SCH (06:03)
[2023-08-31 07:16] LABS: EOSINOPHILS # (AUTO) 0.1 K/uL (0.0-0.7); EOSINOPHILS % (AUTO) 3.3 % (0.0-7.0); HEMATOCRIT 40.5 % (31.2-41.9); HEMOGLOBIN 13.8 g/dL (10.9-14.3); LYMPHOCYTES # (AUTO) 0.8 K/uL (0.8-4.8); LYMPHOCYTES % (AUTO) 21.8 % (20.5-51.5); MEAN CORPUSCULAR HEMOGLOBIN 31.4 uug (24.7-32.8); MEAN CORPUSCULAR HGB CONC 34 g/dL (32.3-35.6); MEAN CORPUSCULAR VOLUME 91.7 fL (75.5-95.3); MONOCYTES # (AUTO) 0.4 K/uL (0.1-1.30); MONOCYTES % (AUTO) 10.6 % (0.0-11.0); NEUTROPHILS # (AUTO) 2.3 K/uL (1.8-8.9); NEUTROPHILS % (AUTO) 63.3 % (38.5-71.5); PLATELET COUNT (AUTO) 148 K/uL (179-408); RED BLOOD CELL COUNT(AUTO) 4.41 MIL/uL (3.63-4.92); RED CELL DISTRIBUTION WIDTH 13.7 % (12.3-17.7); WHITE BLOOD COUNT (AUTO) 3.7 K/uL (3.8-11.8)
[2023-08-31 07:26] LABS: DIFFERENTIAL COMMENT 1
[2023-08-31 07:48] LABS: CALCIUM 8.7 mg/dL (8.5-10.1); CARBON DIOXIDE 27 mmol/L (21-32); CHLORIDE 105 mmol/L (98-107); CREATININE 0.8 mg/dL (0.6-1.3); GLUCOSE 92 mg/dL (74-106); MAGNESIUM 2.1 mg/dL (1.8-2.4); PHOSPHOROUS 3.9 mg/dL (2.5-4.9); POTASSIUM 3.8 mmol/L (3.5-5.1); SODIUM SERUM 140 mmol/L (136-145); UREA NITROGEN, BLOOD 16 mg/dL (7-18)
[2023-08-31] MEDS: ASPIRIN 81 MG TAB.CHEW PO SCH (09:00)
[2023-08-31] MEDS: LOSARTAN POTASSIUM 50 MG TABLET PO SCH (09:00)
[2023-08-31 11:09] VITALS: BP 124/70; TEMP 97.8; O2SAT 94
[2023-08-31] MEDS: ACETAMINOPHEN 325 MG TABLET PO PRN (11:29)
[2023-08-31] MEDS ORDERED: AZIT500T4 PO (13:40)
[2023-08-31] MEDS ORDERED: MECL-159 PO (13:40)
[2023-08-31] MEDS: CEFTRIAXONE 1 G in IV DEXTROSE 5% 50 ML IV SCH (13:49)
[2023-08-31 15:28] VITALS: BP 103/66; TEMP 97.7; O2SAT 92
== END 2023-08-31 18:53 | disposition home or self-care (01) | DRG 193 ==
LOC: ER 11:53 → TELE3 18:21 → MEDSURG3 08-30 10:37
PROVIDERS: ADMIT Student in an Organized Health Care Education/Training Program; ATTEND Student in an Organized Health Care Education/Training Program
DX: J15.9 Unspecified bacterial pneumonia (principal); I21.A1 Myocardial infarction type 2; E44.0 Moderate protein-calorie malnutrition; J44.0 Chronic obstructive pulmonary disease with (acute) lower respiratory infection; H81.10 Benign paroxysmal vertigo, unspecified ear; I25.2 Old myocardial infarction; Z20.822 Contact with and (suspected) exposure to COVID-19; E78.5 Hyperlipidemia, unspecified; G43.909 Migraine, unspecified, not intractable, without status migrainosus; I10 Essential (primary) hypertension; I25.10 Atherosclerotic heart disease of native coronary artery without angina pectoris; K21.9 Gastro-esophageal reflux disease without esophagitis; K29.70 Gastritis, unspecified, without bleeding; Z79.82 Long term (current) use of aspirin; Z68.24 Body mass index [BMI] 24.0-24.9, adult
CPT/HCPCS: 36415; 70450; 70496; 71045; 71275; 83605; 83735; 84100; 84443; 84484; 85025; 87040; 93005; 93307; A4606; A4663; G0378; J0456; J0696; J1650; J7050; J8597; Q0144; Q9967

== ENCOUNTER 2024-03-29 11:42 | Inpatient (IN) | payer MEDICAID, OTHER ==
[~2024-03-29] VITALS: Ht 162.6 cm; Wt 64.0 kg
[~2024-03-29 11:42] MED LIST changes: -AMOX-430 PO; +ASPI-1165 PO; -ASPI81TA31 PO; +AZIT500T4 PO; -DIPH25CA83 PO; -DOXY100C5 PO; +MAGN400O6 PO; +MECL-159 PO; -METO-295 PO; -NAPR-1009 PO; -ONDA4TAB11 PO; -TRAM50TA2 PO
[2024-03-29 12:36] LABS: BASOPHILS % (AUTO) 0.4 % (0.0-2.0); HEMATOCRIT 38.5 % (31.2-41.9); LYMPHOCYTES # (AUTO) 0.4 K/uL (0.8-4.8); LYMPHOCYTES % (AUTO) 4.8 % (20.5-51.5); MEAN CORPUSCULAR HEMOGLOBIN 30.8 uug (24.7-32.8); MEAN CORPUSCULAR HGB CONC 34 g/dL (32.3-35.6); MEAN CORPUSCULAR VOLUME 91.1 fL (75.5-95.3); MONOCYTES # (AUTO) 1.1 K/uL (0.1-1.30); MONOCYTES % (AUTO) 11.5 % (0.0-11.0); NEUTROPHILS # (AUTO) 7.6 K/uL (1.8-8.9); NEUTROPHILS % (AUTO) 83.3 % (38.5-71.5); PLATELET COUNT (AUTO) 164 K/uL (179-408); RED BLOOD CELL COUNT(AUTO) 4.23 MIL/uL (3.63-4.92); RED CELL DISTRIBUTION WIDTH 12.9 % (12.3-17.7); WHITE BLOOD COUNT (AUTO) 9.1 K/uL (3.8-11.8)
[2024-03-29 12:42] LABS: DIFFERENTIAL COMMENT 1
[2024-03-29 12:45] LABS: CARBON DIOXIDE 27 mmol/L (21-32); CHLORIDE 103 mmol/L (98-107); CREATININE 0.9 mg/dL (0.6-1.3); GLUCOSE 125 mg/dL (74-106); SODIUM SERUM 136 mmol/L (136-145); UREA NITROGEN, BLOOD 18 mg/dL (7-18)
[2024-03-29 12:58] LABS: ALANINE AMINOTRANSFERASE 10 U/L (14-59); ALBUMIN 2.6 g/dL (3.4-5.0); ALKALINE PHOSPHATASE 72 U/L (50-136); ASPARTATE AMINOTRANSFERASE 9 U/L (15-37); BILIRUBIN,DIRECT 0.2 mg/dL (0.0-0.2); BILIRUBIN,TOTAL 0.6 mg/dL (0.2-1.0); CALCIUM 8.8 mg/dL (8.5-10.1); NT-PRO BNP 3849 pg/mL (0-125); TOTAL PROTEIN, SERUM 6.7 g/dL (6.4-8.2)
[2024-03-29] MEDS ORDERED: REMEDY ESSENTIAL ZINC PASTE 113 GM TP PRN (13:45)
[2024-03-29] MEDS ORDERED: FUROSEMIDE 20 MG/2 ML VIAL ONE (13:57)
[2024-03-29] MEDS ORDERED: NITROGLYCERIN OINT 1 GM PACKET TP ONE (13:58)
[2024-03-29] MEDS: FUROSEMIDE 20 MG/2 ML VIAL IV ONE (14:08)
[2024-03-29] MEDS: NITROGLYCERIN OINT 1 GM PACKET TP ONE (14:11)
[2024-03-29] MEDS ORDERED: MECLIZINE HCL 25 MG TABLET PO PRN (16:15)
[2024-03-29 16:21] VITALS: BP 114/58; TEMP 97.3; O2SAT 94
[2024-03-29] MEDS: MORPHINE SULFATE 2 MG/1 ML DISP.SYRIN IV PRN (16:28)
[2024-03-29 20:00] VITALS: BP 126/63; TEMP 99; O2SAT 86
[2024-03-29 20:05] VITALS: BP 126/63; TEMP 97.3; O2SAT 93
[2024-03-29] MEDS: ENOXAPARIN SODIUM 40 MG/0.4 ML DISP.SYRIN SQ SCH (20:17)
[2024-03-29] MEDS: HYDROCODONE/APAP 5-325MG TABLET PO PRN (20:18)
[2024-03-29] MEDS: ATORVASTATIN 40 MG TABLET PO SCH (20:20)
[2024-03-30] VITALS (7 sets, daily range): BP systolic 109–122; BP diastolic 55–72; TEMP 97.6–98.6; O2SAT 93–98
[2024-03-30] MEDS: PANTOPRAZOLE SODIUM 40 MG TABLET.DR PO SCH (06:18)
[2024-03-30 06:44] LABS: EOSINOPHILS % (AUTO) 0.2 % (0.0-7.0); HEMATOCRIT 38.1 % (31.2-41.9); MEAN CORPUSCULAR HGB CONC 34 g/dL (32.3-35.6); MEAN CORPUSCULAR VOLUME 90.8 fL (75.5-95.3); RED BLOOD CELL COUNT(AUTO) 4.19 MIL/uL (3.63-4.92); RED CELL DISTRIBUTION WIDTH 12.8 % (12.3-17.7)
[2024-03-30 06:48] LABS: BASOPHILS % (AUTO) 0.2 % (0.0-2.0); LYMPHOCYTES # (AUTO) 0.7 K/uL (0.8-4.8); MONOCYTES # (AUTO) 0.9 K/uL (0.1-1.30); MONOCYTES % (AUTO) 10.2 % (0.0-11.0); NEUTROPHILS # (AUTO) 7.1 K/uL (1.8-8.9); NEUTROPHILS % (AUTO) 81.4 % (38.5-71.5); PLATELET COUNT (AUTO) 118 K/uL (179-408); WHITE BLOOD COUNT (AUTO) 8.8 K/uL (3.8-11.8)
[2024-03-30 06:51] LABS: DIFFERENTIAL COMMENT 1
[2024-03-30 07:06] LABS: CALCIUM 8.5 mg/dL (8.5-10.1); CREATININE 0.8 mg/dL (0.6-1.3); MAGNESIUM 2.1 mg/dL (1.8-2.4); PHOSPHOROUS 2.9 mg/dL (2.5-4.9); POTASSIUM 3.6 mmol/L (3.5-5.1)
[2024-03-30] MEDS: LOSARTAN POTASSIUM 50 MG TABLET PO SCH (08:57)
[2024-03-30] MEDS: FUROSEMIDE 40 MG/4 ML VIAL IV SCH ×2 (08:57→13:01)
[2024-03-30] MEDS ORDERED: FUROSEMIDE 40 MG/4 ML VIAL IV SCH (10:30)
[2024-03-30] MEDS ORDERED: CEFEPIME HCL 1 G in IV DEXTROSE 5% 50 ML IV SCH (11:00)
[2024-03-30] MEDS: AZITHROMYCIN IV 500 MG in IV DEXTROSE 5% 250 ML IV SCH (11:46)
[2024-03-30] MEDS: POTASSIUM CHLORIDE 20 MEQ TAB.PRT.SR PO SCH (11:54)
[2024-03-30] MEDS: CEFEPIME HCL 1 G in IV DEXTROSE 5% 50 ML IV SCH (13:01)
[2024-03-30] MEDS: MAGNESIUM HYDROXIDE 30 ML LIQUID UDC PO PRN (20:09)
[2024-03-31] VITALS (7 sets, daily range): BP systolic 101–118; BP diastolic 46–69; TEMP 97.7–98.4; O2SAT 90–96
[2024-03-31 05:56] LABS: BASOPHILS % (AUTO) 0.6 % (0.0-2.0); EOSINOPHILS # (AUTO) 0.1 K/uL (0.0-0.7); EOSINOPHILS % (AUTO) 2.2 % (0.0-7.0); HEMATOCRIT 38.4 % (31.2-41.9); LYMPHOCYTES # (AUTO) 0.6 K/uL (0.8-4.8); LYMPHOCYTES % (AUTO) 9.5 % (20.5-51.5); MEAN CORPUSCULAR HEMOGLOBIN 30.9 uug (24.7-32.8); MEAN CORPUSCULAR HGB CONC 34 g/dL (32.3-35.6); MEAN CORPUSCULAR VOLUME 91.1 fL (75.5-95.3); MONOCYTES # (AUTO) 0.7 K/uL (0.1-1.30); MONOCYTES % (AUTO) 10.7 % (0.0-11.0); NEUTROPHILS # (AUTO) 5.2 K/uL (1.8-8.9); PLATELET COUNT (AUTO) 186 K/uL (179-408); RED BLOOD CELL COUNT(AUTO) 4.21 MIL/uL (3.63-4.92); RED CELL DISTRIBUTION WIDTH 13.2 % (12.3-17.7); WHITE BLOOD COUNT (AUTO) 6.7 K/uL (3.8-11.8)
[2024-03-31 06:03] LABS: DIFFERENTIAL COMMENT 1
[2024-03-31 06:11] LABS: ALANINE AMINOTRANSFERASE 17 U/L (14-59); ALBUMIN 2.4 g/dL (3.4-5.0); ALKALINE PHOSPHATASE 68 U/L (50-136); ASPARTATE AMINOTRANSFERASE 12 U/L (15-37); BILIRUBIN,TOTAL 0.4 mg/dL (0.2-1.0); CALCIUM 8.9 mg/dL (8.5-10.1); CARBON DIOXIDE 29 mmol/L (21-32); CHLORIDE 104 mmol/L (98-107); GLUCOSE 112 mg/dL (74-106); MAGNESIUM 2.3 mg/dL (1.8-2.4); PHOSPHOROUS 3.5 mg/dL (2.5-4.9); POTASSIUM 4.5 mmol/L (3.5-5.1); SODIUM SERUM 137 mmol/L (136-145); TOTAL PROTEIN, SERUM 6.7 g/dL (6.4-8.2); UREA NITROGEN, BLOOD 20 mg/dL (7-18)
[2024-03-31] MEDS: FUROSEMIDE 40 MG/4 ML VIAL IV SCH (12:46)
[2024-04-01 00:04] VITALS: BP 114/76; TEMP 97.6; O2SAT 92
[2024-04-01 04:00] VITALS: BP 108/99; TEMP 97.8; O2SAT 96
[2024-04-01 06:39] LABS: BASOPHILS % (AUTO) 0.7 % (0.0-2.0); EOSINOPHILS # (AUTO) 0.2 K/uL (0.0-0.7); EOSINOPHILS % (AUTO) 2.9 % (0.0-7.0); HEMATOCRIT 38.9 % (31.2-41.9); HEMOGLOBIN 13.1 g/dL (10.9-14.3); LYMPHOCYTES # (AUTO) 0.6 K/uL (0.8-4.8); LYMPHOCYTES % (AUTO) 10.4 % (20.5-51.5); MEAN CORPUSCULAR HEMOGLOBIN 30.4 uug (24.7-32.8); MEAN CORPUSCULAR HGB CONC 34 g/dL (32.3-35.6); MEAN CORPUSCULAR VOLUME 90.4 fL (75.5-95.3); MONOCYTES # (AUTO) 0.7 K/uL (0.1-1.30); MONOCYTES % (AUTO) 11.4 % (0.0-11.0); NEUTROPHILS # (AUTO) 4.3 K/uL (1.8-8.9); NEUTROPHILS % (AUTO) 74.6 % (38.5-71.5); PLATELET COUNT (AUTO) 177 K/uL (179-408); RED CELL DISTRIBUTION WIDTH 13.1 % (12.3-17.7); WHITE BLOOD COUNT (AUTO) 5.8 K/uL (3.8-11.8)
[2024-04-01 06:48] LABS: DIFFERENTIAL COMMENT 1
[2024-04-01 06:52] LABS: ALBUMIN 2.4 g/dL (3.4-5.0); BILIRUBIN,TOTAL 0.4 mg/dL (0.2-1.0); CALCIUM 9.1 mg/dL (8.5-10.1); MAGNESIUM 2.3 mg/dL (1.8-2.4); POTASSIUM 3.8 mmol/L (3.5-5.1); TOTAL PROTEIN, SERUM 6.9 g/dL (6.4-8.2)
[2024-04-01 07:31] VITALS: BP 110/64; TEMP 97.7; O2SAT 94
[2024-04-01] MEDS: ACETAMINOPHEN 325 MG TABLET PO PRN (10:07)
[2024-04-01] MEDS: ONDANSETRON 4 MG/2 ML VIAL IV PRN (10:19)
[2024-04-01 11:31] VITALS: BP 102/62; TEMP 98.7; O2SAT 94
[2024-04-01 15:49] VITALS: BP 114/67; TEMP 97.9; O2SAT 96
[2024-04-01 20:00] VITALS: BP 118/58; TEMP 97.9; O2SAT 95
[2024-04-02 00:07] VITALS: BP 117/64; TEMP 98.2; O2SAT 93
[2024-04-02 04:00] VITALS: BP 110/60; TEMP 98; O2SAT 94
[2024-04-02 07:37] VITALS: BP 118/70; TEMP 98.1; O2SAT 93
[2024-04-02] MEDS ORDERED: ATOR10TA PO (09:03)
[2024-04-02] MEDS ORDERED: ASPI81TA31 PO (09:03)
[2024-04-02] MEDS ORDERED: FURO20TA4 PO (09:03)
[2024-04-02 12:22] VITALS: BP 88/54; TEMP 98.2; O2SAT 95
[2024-04-02 16:25] VITALS: BP 93/52; TEMP 97.7; O2SAT 90
[2024-04-02 20:00] VITALS: BP 99/59; TEMP 98.1; O2SAT 92
[2024-04-03 04:00] VITALS: BP 99/59; TEMP 98.2; O2SAT 93
[2024-04-03 08:01] VITALS: BP 120/66; TEMP 98; O2SAT 95
[2024-04-03 11:32] VITALS: BP 116/57; TEMP 97.6; O2SAT 95
[2024-04-03 16:01] VITALS: BP 111/63; TEMP 98.4; O2SAT 94
[2024-04-03 20:00] VITALS: BP 111/66; TEMP 97.7; O2SAT 93
[2024-04-04] VITALS (7 sets, daily range): BP systolic 104–145; BP diastolic 51–76; TEMP 97.5–98.8; O2SAT 89–95
[2024-04-04] MEDS ORDERED: ASPIRIN/ACETAMINOPHEN/CAFFEINE TABLET PO PRN (13:00)
== END 2024-04-04 16:45 | disposition left against medical advice (07) | DRG 194 ==
LOC: ER 11:42 → TELE3 15:56
PROVIDERS: ADMIT Nurse Practitioner Acute Care; ATTEND Nurse Practitioner Acute Care
DX: I11.0 Hypertensive heart disease with heart failure (principal); J96.01 Acute respiratory failure with hypoxia; I67.4 Hypertensive encephalopathy; I21.A1 Myocardial infarction type 2; J15.9 Unspecified bacterial pneumonia; I50.33 Acute on chronic diastolic (congestive) heart failure; Z66 Do not resuscitate; M51.84 Other intervertebral disc disorders, thoracic region; M54.2 Cervicalgia; I25.2 Old myocardial infarction; H81.10 Benign paroxysmal vertigo, unspecified ear; E78.5 Hyperlipidemia, unspecified; Z87.440 Personal history of urinary (tract) infections; K21.9 Gastro-esophageal reflux disease without esophagitis; Z90.710 Acquired absence of both cervix and uterus; Z53.29 Procedure and treatment not carried out because of patient's decision for other reasons; Z79.899 Other long term (current) drug therapy; G44.86 Cervicogenic headache; I25.10 Atherosclerotic heart disease of native coronary artery without angina pectoris; R79.1 Abnormal coagulation profile; J98.11 Atelectasis; G89.29 Other chronic pain
CPT/HCPCS: 36415; 70450; 70490; 71045; 71250; 83735; 84100; 84484; 85025; 85730; 93005; 93307; G0378; J0456; J0692; J1650; J1940; J2270; J2405; J7050

== ENCOUNTER 2024-06-22 20:36 | Emergency (ER) | payer MEDICAID, OTHER ==
[~2024-06-22] VITALS: Ht 162.6 cm; Wt 65.8 kg
[~2024-06-22 20:36] MED LIST changes: +ASPI81TA31 PO; +ATOR10TA PO; -AZIT500T4 PO; +FURO20TA4 PO; -MAGN400O6 PO; -MECL-159 PO
[2024-06-22] MEDS ORDERED: AMOX-430 PO (21:12)
[2024-06-22] MEDS ORDERED: MUPI15CR TP (21:12)
[2024-06-22] MEDS ORDERED: AMOXICILLIN-CLAVUL 875-125MG TABLET ONE (21:18)
[2024-06-22] MEDS ORDERED: TDAP DIPH,PERTUSS,TET VAC/PF 0.5 ML DISP.SYRIN IM ONE (21:19)
[2024-06-22] MEDS: AMOXICILLIN-CLAVUL 875-125MG TABLET PO ONE (21:23)
[2024-06-22] MEDS: TDAP DIPH,PERTUSS,TET VAC/PF 0.5 ML DISP.SYRIN IM ONE (21:24)
[2024-06-22 21:30] VITALS: BP 150/75; TEMP 98.6; O2SAT 95
== END 2024-06-22 21:31 | disposition home or self-care (01) ==
LOC: ER 20:42
DX: L03.115 Cellulitis of right lower limb (principal); G43.909 Migraine, unspecified, not intractable, without status migrainosus; I25.10 Atherosclerotic heart disease of native coronary artery without angina pectoris; K21.9 Gastro-esophageal reflux disease without esophagitis; I10 Essential (primary) hypertension; Z79.82 Long term (current) use of aspirin; Z98.890 Other specified postprocedural states; Z79.899 Other long term (current) drug therapy
CPT/HCPCS: 90715; A4606; A4663